=== PATIENT | female | born 1950 | race Caucasian/White ===

== ENCOUNTER 2016-12-03 22:42 | Emergency (ER) | payer MEDICAID ==
[~2016-12-03] VITALS: Ht 149.9 cm; Wt 68.0 kg
[2016-12-03 22:49] VITALS: BP 148/98
--- NOTE | 2016-12-04 00:26 | NUR ---
66 Y/O F W/C/O L ARM, SHOULDER, NECK, AND ELBOW PAIN X MORE THAN 1 YEAR. PER PT PAIN KEEPS GETTING WORSE AND OTC MEDS DONT HELP HER WITH PAIN ANY MORE. ER MD AWARED, NO S/S OF DISTRESS AT THIS MOMENT.
[2016-12-04] MEDS ORDERED: fentaNYL 0.05 MG/ML VIAL IM ONE (00:35)
[2016-12-04 01:27] VITALS: BP 124/55
--- NOTE | 2016-12-04 01:27 | NUR ---
Patient discharged with v/s stable. Written and verbal after care instructions given and explained. Patient alert, oriented and verbalized understanding of instructions. Ambulatory with steady gait. All questions addressed prior to discharge. ID band removed. Patient advised to follow up with PMD OR RETURN TO ER IF CONDITION WORSENS. Rx of MOTRIN, TRAMADOL HYDROCHLORIDE given. Patient educated on indication of medication including possible reaction and side effects. Opportunity to ask questions provided and answered.
== END 2016-12-04 01:27 | disposition home or self-care (01) ==
LOC: MED 22:42
DX: S16.1XXA Strain of muscle, fascia and tendon at neck level, initial encounter (principal); R03.0 Elevated blood-pressure reading, without diagnosis of hypertension; X58.XXXA Exposure to other specified factors, initial encounter; Y93.89 Activity, other specified; Y92.89 Other specified places as the place of occurrence of the external cause; Y99.8 Other external cause status
CPT/HCPCS: 72040; 72125; 96372; 99284; J3010